=== PATIENT | male | born 2000 | race Caucasian/White ===

== ENCOUNTER → 2021-03-30 | Outpatient (CLI) | payer OTHER ==
[~2021-03-30] MED LIST: ACET325 PO; ALBU90OI INH; AMOCLA500 PO; AMOX50SU PO; CODACEE120 PO; IBUP600 PO; OXYACE5T PO; PRED15SY PO; PROCODE120 PO; RANI150EL PO; Veetids 500500 MG PO
== END | disposition home or self-care (01) ==
LOC: LAB 16:03 → LAB SHORT 16:03
DX: J02.9 Acute pharyngitis, unspecified (principal)
CPT/HCPCS: 87081